=== PATIENT | female | born 1970 | race Caucasian/White ===

== ENCOUNTER → 2017-09-14 | Day surgery (SDC) | payer OTHER ==
[~2017-09-14] VITALS: Ht 152.4 cm; Wt 81.6 kg
[~2017-09-14] MED LIST: FERROUS SULFAT325 M3 PO; LEVOXYL88 MCG PO; NEXIUM 24HR22.3 MG PO; VITAMIN D PO
--- NOTE | 2017-09-14 02:02 | ED GI/GU/ABDOMINAL COMPLAINT ---
History of Present Illness General Chief Complaint: Abdominal Pain/Flank Pain Stated Complaint: ABD PAIN Source: patient Exam Limitations: no limitations Vital Signs & Intake/Output Vital Signs & Intake/Output Vital Signs Date Time Temp Pulse Resp B/P B/P Pulse O2 O2 Flow FiO2 Mean Ox Delivery Rate 09/14 0904 97.6 69 18 115/56 99 Room Air 09/14 0710 97.9 73 18 113/65 97 Room Air 09/14 0529 97.1 61 20 146/80 96 Room Air 09/14 0159 97.7 64 16 152/77 99 Room Air Room Air Allergies Coded Allergies: bacitracin (From NEOSPORIN ([id number])) (Severe, ANAPHYLAXIS 09/14/17) latex (Severe, ANAPHYLAXIS 09/14/17) neomycin (From NEOSPORIN ([id number])) (Severe, ANAPHYLAXIS 09/14/17) polymyxin B (From NEOSPORIN ([id number])) (Severe, ANAPHYLAXIS 09/14/17) strawberry (Severe, ANAPHYLAXIS 09/14/17) Reconcile Medications Esomeprazole Magnesium (Nexium 24HR) 22.3 MG CAPSULE.DR 1 CAP PO DAILY PRN GERD (Reported) Ferrous Sulfate 325 MG (65 MG IRON) TABLET 1 TAB PO BID ANEMIA (Reported) Levothyroxine Sodium (Levoxyl) 88 MCG TABLET 1 TAB PO DAILY HYPOTHYROID ( Reported) [VITAMIN D] 5,000 UNITS 1 TAB PO DAILY PROPHO (Reported) Triage Note: PT TO TRIAGE WITH EPIGASTRIC PAIN AND PIN AND NEEDS TO HER LEFT ABD SINCE 2100. PT STATES PAIN IS 10/10. PT IS NAUSEOUS AND ACTIVELY VIMTING AT TRIAGE. STATES SHE HAS FELT HOT AND COLD BUT IS CURRENTLY AFEBRILE. Triage Nurses Notes Reviewed? yes ? N Is pt currently ? No Onset: Abrupt Duration: hour(s): (SEVERAL) Timing: multiple episodes today Quality/Severity: mild, moderate, stabbing Location: epigastric, right upper quadrant Radiation: back Activities at Onset: eating No Modifying Factors: none Associated Symptoms: abdominal pain, nausea/vomiting HPI: This is a 47 year old female presents to the ER for chief complaint of epigastric/right upper quadrant abdominal pain that started around 9:30 after eating a sausage and egg sandwich for dinner around 6:30. She states the pain radiates to both sides around to the left. Positive chest pain and nausea. She vomited upon arrival. No urinary symptoms. No difficulty with bowel habits. (Gaye Lopez MD) Past History Travel History Traveled to [place] past 21 day No Medical History Any Pertinent Medical History? see below for history Neurological: multiple sclerosis EENT: NONE Cardiovascular: NONE Respiratory: NONE Gastrointestinal: NONE Hepatic: NONE Renal: NONE Musculoskeletal: NONE Psychiatric: NONE Endocrine: hypoglycemia Blood Disorders: NONE Cancer(s): UTERINE CA PUBLIC RELATIONS ANALYST/Reproductive: NONE Surgical History Surgical History: SURGICAL EXCISION OF MOLE 09/13/17 Psychosocial History What is your primary language Cambodian Tobacco Use: Current Daily Use Daily Tobacco Use Amount/Type: => 5 Cigarettes daily ETOH Use: occasional use Illicit Drug Use: denies illicit drug use Family History Hx Contributory? No (Gaye Lopez MD) Review of Systems Review of Systems Constitutional: Denies: chills, fever. EENTM: Reports: no symptoms. Respiratory: Denies: cough, short of breath. Cardiovascular: Reports: chest pain. GI: Reports: abdominal pain, bloody stool, vomiting. Genitourinary: Denies: discharge, dysuria, frequency, hematuria. Musculoskeletal: Reports: back pain. Skin: Reports: no symptoms. Neurological/Psychological: Reports: no symptoms. Hematologic/Endocrine: Denies: bruising, bleeding, polyuria, polydipsia. Immunologic/Allergic: Denies: splenectomy. All Other Systems: Reviewed and Negative (Gaye Lopez MD) Physical Exam Physical Exam General Appearance: well developed/nourished, alert, awake, anxious, moderate distress, severe distress, obese Head: atraumatic, normal appearance Eyes: Bilateral: normal appearance, PERRL, EOMI. Ears, Nose, Throat, Mouth: hearing grossly normal, moist mucous membrane Neck: normal inspection, supple, full range of motion Respiratory: normal breath sounds, chest non-tender, no respiratory distress Cardiovascular: regular rate/rhythm, normal peripheral pulses Gastrointestinal: normal bowel sounds, soft, tenderness (RUQ, EPIGASTRIC), POSITIVE ROJAS'S Back: normal inspection, normal range of motion, DRESSING IN PLACE OVER MOLE REMOVAL Extremities: normal range of motion Neurologic/Psych: no motor/sensory deficits, awake, alert, oriented x 3 Skin: intact, normal color, warm/dry Core Measures ACS in differential dx? Yes Sepsis Present: No Sepsis Focused Exam Completed? No (John GUTIERREZ,Gaye) Progress Differential Diagnosis: AAA, AMI, biliary colic, bowel obstruction, cholecystitis, gastritis, hepatitis, pancreatitis, peptic ulcer, PUD/GERD, perforated viscous, SBO Plan of Care: Orders Procedure Date/time Status Add-on Test (ER Only) 09/14 0418 Active URINALYSIS 09/14 034 Complete Add-on Test (ER Only) 09/14 0302 Active EKG 09/14 025 Active TROPONIN LEVEL 09/14 220 Complete PARTIAL THROMBOPLASTIN TIME 09/14 220 Complete PROTHROMBIN TIME 09/14 220 Complete LIPASE 09/14 211 Complete COMPREHENSIVE METABOLIC PANEL 09/14 211 Complete CBC WITHOUT DIFFERENTIAL 09/14 211 Complete AMYLASE 09/14 211 Complete Laboratory Tests 09/14/17 0550: Urine Color YEL, Urine Clarity CLEAR, Urine pH 5.5, Ur Specific [place] 1.015, Urine Protein NEG, Urine Ketones NEG, Urine Nitrite NEG, Urine Bilirubin NEG, Urine Urobilinogen 0.2, Ur Leukocyte Esterase NEG, Ur Microscopic SEDIMENT EXAMINED, Urine RBC 1-3, Ur Epithelial Cells MOD H, Urine Hemoglobin TRACE- INTACT, Urine Glucose NEG 09/14/17 0220: Anion Gap 13, Estimated GFR > 60, BUN/Creatinine Ratio 25.7 H, Glucose 122 H, Calcium 9.7, Total Bilirubin 0.3, AST 19, ALT 25, Alkaline Phosphatase 84, Troponin I < 0.01, Total Protein 7.3, Albumin 4.3, Globulin 3.0, Albumin/ Globulin Ratio 1.4, Amylase 38, Lipase 71, PT 10.7, INR 1.02, APTT 25, CBC w Diff MAN DIFF ORDERED, RBC 4.78, MCV 78.3 L, MCH 26.0 L, RDW 18.2 H, MPV 9.1, Gran % 55.8, Lymphocytes % 36.5, Monocytes % 5.5, Eosinophils % 1.5, Basophils % 0.7, Absolute Granulocytes 7.0 H, Segmented Neutrophils 47, Band Neutrophils 1, Absolute Lymphocytes 4.6 H, Lymphocytes 42, Monocytes 6, Absolute Monocytes 0.7 H, Eosinophils 3, Absolute Eosinophils 0.2, Basophils 1, Absolute Basophils 0.1 , Platelet Estimate ADEQUATE, Normocytic RBCs VERIFIED, Normochromic RBCs VERIFIED, PUBS MCHC 33.3 CT scan consistent with gallbladder stones. No pericholecystic fluid with persistent right upper quadrant pain on palpation. She will stay for right upper quadrant ultrasound in the a.m. Patient was given pain medications through the IV with improvement. Diagnostic Imaging: Viewed by Me: CT Scan. Discussed w/RAD: CT Scan. Radiology Impression: PATIENT: HECTOR MELVIN PRESENT AGE: 47 PATIENT ACCOUNT NO: [id number] : 68 LOCATION: [facility] ORDERING PHYSICIAN: Gaye Lopez MD SERVICE DATE: 09/14/17 EXAM TYPE: CAT - CT ABD & PELVIS W IV CONTRAST EXAMINATION: CT ABDOMEN AND PELVIS WITH CONTRAST CLINICAL INFORMATION: Epigastric and abdominal pain radiating to the back. COMPARISON: None available. TECHNIQUE: Multidetector volumetric imaging was performed of the abdomen and pelvis following IV administration of 120 mL of Optiray 320 intravenous contrast. Sagittal and coronal reformatted images were obtained on the technologist's workstation. FINDINGS: The lung bases are clear. There is a 1.2 cm low-density lesion with peripheral enhancement within the right lobe of the liver, most compatible with a hemangioma. The spleen, adrenal glands, and pancreas are normal. Cholelithiasis without evidence of acute cholecystitis. The kidneys exhibit symmetric nephrograms without evidence of hydronephrosis or nephrolithiasis. No focal renal lesions. The large and small bowel are normal in caliber without evidence of mechanical obstruction. No focal inflammatory changes adjacent to the large or the small bowel. The appendix is normal. There is no free air and there is no intra-abdominal free fluid. No mesenteric or retroperitoneal adenopathy. The uterus is surgically absent. No pelvic adenopathy. No free fluid within the pelvis. There are no acute osseous abnormalities. No significant soft tissue abnormality. IMPRESSION: Cholelithiasis without CT evidence of acute cholecystitis. There is a 1.2 cm hemangioma within the right lobe of the liver. DICTATED BY: Mohit Jacobs MD DATE/TIME DICTATED:09/14/17356 PROJECT STRUCTURAL ENGINEER:JUDY DATE/TIME TRANSCRIBED:09/14/17356 CONFIDENTIAL, DO NOT COPY WITHOUT APPROPRIATE AUTHORIZATION. <Electronically signed in Other Vendor System> SIGNED BY: Mohit Jacobs MD 09/14/17 0404 Initial ED EKG: NSR Hand-Off Endorsed To: Juan Metzger MD Endorsed Time: 0700 Pending: ultrasound (RUQ) (John GUTIERREZ,Gaye) Radiology Impression: PATIENT: HECTOR MELVIN PRESENT AGE: 47 PATIENT ACCOUNT NO: [id number] : 68 LOCATION: [facility] ORDERING PHYSICIAN: Gaye Lopez MD SERVICE DATE: 09/14/17 EXAM TYPE: US - US- LIMITED ABDOMEN EXAMINATION: US ABDOMEN LIMITED CLINICAL INFORMATION: Clinical question of acute cholecystitis. COMPARISON: CT abdomen and pelvis dated 2016. TECHNIQUE: Real-time imaging of the right upper quadrant abdominal viscera. FINDINGS: PANCREAS: Poorly visualized secondary to overlapping bowel gas. ABDOMINAL AORTA: The proximal segment is normal in caliber. INFERIOR VENA CAVA: Visualized portions are normal. LIVER: Normal. The liver demonstrates normal size, contour and echogenicity. No focal lesion or intrahepatic biliary duct dilatation. GALLBLADDER: There are shadowing gallstones, the largest measuring 1.5 cm, 1.5 cm and 1.5 cm in maximal diameter. The gallbladder is physiologically distended without evidence of sludge, polyps, wall thickening or pericholecystic fluid. COMMON BILE DUCT: Normal in caliber measuring 0.4 cm in diameter. RIGHT KIDNEY: Normal. No hydronephrosis. No renal calculi or focal parenchymal lesions. The kidney measures 9.9 cm in maximum dimension. FREE FLUID : None. IMPRESSION: 1. There is cholelithiasis, without cholecystitis or choledocholithiasis seen. 2. Limited ultrasound examination of the pancreas. DICTATED BY: Ashok Burt MD DATE/TIME DICTATED:09/14/17830 PROJECT STRUCTURAL ENGINEER:JUDY DATE/TIME TRANSCRIBED:09/14/17830 CONFIDENTIAL, DO NOT COPY WITHOUT APPROPRIATE AUTHORIZATION. <Electronically signed in Other Vendor System> SIGNED BY: Ashok Burt MD 09/14/17845 Comments: Patient is requiring multiple doses of pain medication for her right upper quadrant pain. Case was discussed with Dr. Garcia. Surgery will consult on the patient. (Juan Metzger MD) Departure Departure Disposition: STILL A PATIENT Condition: Stable Clinical Impression Primary Impression: Cholelithiasis Referrals: Geraldine Hansen MD (PCP/Family) Departure Forms: Customer Survey General Discharge Information (John GUTIERREZ,Gaye) OR/GI Note Spoke With: Jose GUTIERREZ,Payam Gonzalze ED Treatment Decision: HECTOR MELVIN requires urgent operative management or an emergent procedure that cannot be performed in the Emergency Room setting. Transport To: [facility] (Yassine GUTIERREZ,Juan Melo)
[2017-09-14 02:33] LABS: ABSOLUTE BASOPHIL COUNT 0.1 /CUMM (0.0-0.2); ABSOLUTE EOSINOPHIL COUNT 0.2 /CUMM (0.0-0.7); ABSOLUTE LYMPH COUNT 4.6 /CUMM (1.2-3.4); ABSOLUTE MONOCYTE COUNT 0.7 /CUMM (0.10-0.60); BASOPHIL % 0.7 % (0.0-2.0); EOSINOPHIL % 1.5 % (0-5); GRANULOCYTE % 55.8 % (42.2-75.2); HEMATOCRIT 37.5 % (37-47); MEAN CORPUSCULAR HGB CONC 33.3 G/DL (33.0-37.0); MEAN CORPUSCULAR VOLUME 78.3 FL (81.0-99.0); MEAN PLATELET VOLUME 9.1 FL (7.4-10.4); PLATELET COUNT 326 /CUMM (130-400); RBC DISTRIBUTION WIDTH 18.2 % (11.5-14.5); RED BLOOD CELL CT 4.78 /CUMM (4.20-5.40); WHITE BLOOD CELL COUNT 12.5 /CUMM (4.8-10.8)
--- NOTE | 2017-09-14 04:04 | CT SCAN REPORT ---
EXAMINATION: CT ABDOMEN AND PELVIS WITH CONTRAST CLINICAL INFORMATION: Epigastric and abdominal pain radiating to the back. COMPARISON: None available. TECHNIQUE: Multidetector volumetric imaging was performed of the abdomen and pelvis following IV administration of 120 mL of Optiray 320 intravenous contrast. Sagittal and coronal reformatted images were obtained on the technologist's workstation. FINDINGS: The lung bases are clear. There is a 1.2 cm low-density lesion with peripheral enhancement within the right lobe of the liver, most compatible with a hemangioma. The spleen, adrenal glands, and pancreas are normal. Cholelithiasis without evidence of acute cholecystitis. The kidneys exhibit symmetric nephrograms without evidence of hydronephrosis or nephrolithiasis. No focal renal lesions. The large and small bowel are normal in caliber without evidence of mechanical obstruction. No focal inflammatory changes adjacent to the large or the small bowel. The appendix is normal. There is no free air and there is no intra-abdominal free fluid. No mesenteric or retroperitoneal adenopathy. The uterus is surgically absent. No pelvic adenopathy. No free fluid within the pelvis. There are no acute osseous abnormalities. No significant soft tissue abnormality. IMPRESSION: Cholelithiasis without CT evidence of acute cholecystitis. There is a 1.2 cm hemangioma within the right lobe of the liver.
[2017-09-14 04:36] LABS: PT 10.7 SEC (9.4-12.5); PTT 25 SEC (25-37)
--- NOTE | 2017-09-14 08:46 | ULTRASOUND REPORT ---
EXAMINATION: US ABDOMEN LIMITED CLINICAL INFORMATION: Clinical question of acute cholecystitis. COMPARISON: CT abdomen and pelvis dated 09/14/2017. TECHNIQUE: Real-time imaging of the right upper quadrant abdominal viscera. FINDINGS: PANCREAS: Poorly visualized secondary to overlapping bowel gas. ABDOMINAL AORTA: The proximal segment is normal in caliber. INFERIOR VENA CAVA: Visualized portions are normal. LIVER: Normal. The liver demonstrates normal size, contour and echogenicity. No focal lesion or intrahepatic biliary duct dilatation. GALLBLADDER: There are shadowing gallstones, the largest measuring 1.5 cm, 1.5 cm and 1.5 cm in maximal diameter. The gallbladder is physiologically distended without evidence of sludge, polyps, wall thickening or pericholecystic fluid. COMMON BILE DUCT: Normal in caliber measuring 0.4 cm in diameter. RIGHT KIDNEY: Normal. No hydronephrosis. No renal calculi or focal parenchymal lesions. The kidney measures 9.9 cm in maximum dimension. FREE FLUID: None. IMPRESSION: 1. There is cholelithiasis, without cholecystitis or choledocholithiasis seen. 2. Limited ultrasound examination of the pancreas.
--- NOTE | 2017-09-14 10:06 | History & Physical Pre-Op ---
Nain Morrissey 09/14/17 0958: General Information and HPI MD Statement: I have seen and personally examined HECTOR MELVIN and documented this H&P. The patient is a 47 year old F who presented with a patient stated chief complaint of [abdominal pain, vomiting]. Source of Information: patient Exam Limitations: no limitations History of Present Illness: 47-year-old female with sudden onset of abdominal pain and vomiting, abdominal pain in the epigastric region that radiated to the right mid back area after eating a sausage egg and cheese sandwich. She has been having similar episodes of this that has been escalating over the past several months since her hysterectomy. She has noted some"indigestion/heartburn"symptoms that have also been escalating over the past few years. Pain last night was severe, it brought her to the emergency room where she received several doses of pain medication and antiemetics and IV fluids, still requiring IV pain medication this morning. Surgery was consulted for evaluation of gallbladder disease as her ultrasound showed gallstones Allergies/Medications Allergies: Coded Allergies: bacitracin (From NEOSPORIN ([id number])) (Severe, ANAPHYLAXIS 09/14/17) latex (Severe, ANAPHYLAXIS 09/14/17) neomycin (From NEOSPORIN ([id number])) (Severe, ANAPHYLAXIS 09/14/17) polymyxin B (From NEOSPORIN ([id number])) (Severe, ANAPHYLAXIS 09/14/17) strawberry (Severe, ANAPHYLAXIS 09/14/17) Home Med list Esomeprazole Magnesium (Nexium 24HR) 22.3 MG CAPSULE.DR 1 CAP PO DAILY PRN GERD (Reported) Ferrous Sulfate 325 MG (65 MG IRON) TABLET 1 TAB PO BID ANEMIA (Reported) Levothyroxine Sodium (Levoxyl) 88 MCG TABLET 1 TAB PO DAILY HYPOTHYROID ( Reported) [VITAMIN D] 5,000 UNITS 1 TAB PO DAILY PROPHO (Reported) Past History Medical History Neurological: multiple sclerosis EENT: NONE Cardiovascular: NONE Respiratory: NONE Gastrointestinal: NONE Hepatic: NONE Renal: NONE Musculoskeletal: NONE Psychiatric: NONE Endocrine: hypoglycemia Blood Disorders: NONE Cancer(s): UTERINE CA WEB PRESSMAN/Reproductive: NONE Surgical History Pertinent Surgical History: hysterectomy (laparoscopic), SURGICAL EXCISION OF MOLE 09/13/17 Past Family/Social History Psychosocial History ETOH Use: occasional use Illicit Drug Use: denies illicit drug use Functional Ability ADLs Independent: dressing, eating, toileting, bathing. Review of Systems Review of Systems: Review of systems: See HPI, all other systems negative. Constitutional: No chills fever or weight loss HEENT: No visual changes no sore throat no congestion Cardiovascular: No chest pain ,palpitation , orthopnea or ankle swelling Skin: No jaundice no rashes Respiratory: No dyspnea cough sputum or hemoptysis GI: See HPI : No dysuria no hematuria Musclulo skeletal: No back pain no neck pain, Neurologic: No numbness no confusion Psych: No stress anxiety or depression,. Heme/endocrine: No bruising no bleeding no polyuria or polydipsia Immunology: No splenectomy or history of AIDS Exam & Diagnostic Data Last 24 Hrs of Vital Signs/I&O Vital Signs Date Time Temp Pulse Resp B/P B/P Pulse O2 O2 Flow FiO2 Mean Ox Delivery Rate 09/14 0904 97.6 69 18 115/56 99 Room Air 09/14 0710 97.9 73 18 113/65 97 Room Air 09/14 0529 97.1 61 20 146/80 96 Room Air 09/14 0159 97.7 64 16 152/77 99 Room Air Room Air Intake & Output 09/14 1600 09/14 0800 09/14 0000 Intake Total 1000 0 Output Total Balance 1000 0 Intake, IV 1000 Intake, Oral 0 Patient 180 lb Weight Physical Exam: Well-developed well-nourished appears mildly uncomfortable. HEENT: Atraumatic, extraocular motion intact Neck: Supple, no lymphadenopathy Respiratory: No respiratory distress clear to auscultation bilateral. Heart: Regular rate and rhythm no murmur Abdomen: Mild guarding, tenderness in the right upper quadrant and epigastric region, positive Ramos sign, no lower abdominal tenderness, soft, nondistended Extremities: No edema, no calf pain Neuro: Alert and oriented x3 Psych: Mood affect normal, normal memory normal judgment. Skin: Warm and dry, no rash on exposed skin Last 24 Hrs of Labs/Robert: Laboratory Tests 09/14/17 0550: Urine Color YEL, Urine Clarity CLEAR, Urine pH 5.5, Ur Specific Barn[place] 1.015, Urine Protein NEG, Urine Ketones NEG, Urine Nitrite NEG, Urine Bilirubin NEG, Urine Urobilinogen 0.2, Ur Leukocyte Esterase NEG, Ur Microscopic SEDIMENT EXAMINED, Urine RBC 1-3, Ur Epithelial Cells MOD H, Urine Hemoglobin TRACE- INTACT, Urine Glucose NEG 09/14/17 0220: Anion Gap 13, Estimated GFR > 60, BUN/Creatinine Ratio 25.7 H, Glucose 122 H, Calcium 9.7, Total Bilirubin 0.3, AST 19, ALT 25, Alkaline Phosphatase 84, Troponin I < 0.01, Total Protein 7.3, Albumin 4.3, Globulin 3.0, Albumin/ Globulin Ratio 1.4, Amylase 38, Lipase 71, PT 10.7, INR 1.02, APTT 25, CBC w Diff MAN DIFF ORDERED, RBC 4.78, MCV 78.3 L, MCH 26.0 L, RDW 18.2 H, MPV 9.1, Gran % 55.8, Lymphocytes % 36.5, Monocytes % 5.5, Eosinophils % 1.5, Basophils % 0.7, Absolute Granulocytes 7.0 H, Segmented Neutrophils 47, Band Neutrophils 1, Absolute Lymphocytes 4.6 H, Lymphocytes 42, Monocytes 6, Absolute Monocytes 0.7 H, Eosinophils 3, Absolute Eosinophils 0.2, Basophils 1, Absolute Basophils 0.1 , Platelet Estimate ADEQUATE, Normocytic RBCs VERIFIED, Normochromic RBCs VERIFIED, PUBS MCHC 33.3 Diagnostic Data Other Results PATIENT: HECTOR MELVIN PRESENT AGE: 47 PATIENT ACCOUNT NO: [id number] : 68 LOCATION: [facility] ORDERING PHYSICIAN: Gaye Lopez MD SERVICE DATE: 09/14/17 EXAM TYPE: US - US-LIMITED ABDOMEN EXAMINATION: US ABDOMEN LIMITED CLINICAL INFORMATION: Clinical question of acute cholecystitis. COMPARISON: CT abdomen and pelvis dated 09/14/2017. TECHNIQUE: Real-time imaging of the right upper quadrant abdominal viscera. FINDINGS: PANCREAS: Poorly visualized secondary to overlapping bowel gas. ABDOMINAL AORTA: The proximal segment is normal in caliber. INFERIOR VENA CAVA: Visualized portions are normal. LIVER: Normal. The liver demonstrates normal size, contour and echogenicity. No focal lesion or intrahepatic biliary duct dilatation. GALLBLADDER: There are shadowing gallstones, the largest measuring 1.5 cm, 1.5 cm and 1.5 cm in maximal diameter. The gallbladder is physiologically distended without evidence of sludge, polyps, wall thickening or pericholecystic fluid. COMMON BILE DUCT: Normal in caliber measuring 0.4 cm in diameter. RIGHT KIDNEY: Normal. No hydronephrosis. No renal calculi or focal parenchymal lesions. The kidney measures 9.9 cm in maximum dimension. FREE FLUID: None. IMPRESSION: 1. There is cholelithiasis, without cholecystitis or choledocholithiasis seen. 2. Limited ultrasound examination of the pancreas. DICTATED BY: Ashok Burt MD DATE/TIME DICTATED:09/14/17830 PROJECT MANAGEMENT ENGINEER:JUDY DATE/TIME TRANSCRIBED:09/14/17830 CONFIDENTIAL, DO NOT COPY WITHOUT APPROPRIATE AUTHORIZATION. <Electronically signed in Other Vendor System> SIGNED BY: Ashok Burt MD 09/14/17845 PATIENT: HECTOR MELVIN PRESENT AGE: 47 PATIENT ACCOUNT NO: [id number] : 68 LOCATION: [facility] ORDERING PHYSICIAN: Gaye Lopez MD SERVICE DATE: 09/14/17 EXAM TYPE: CAT - CT ABD & PELVIS W IV CONTRAST EXAMINATION: CT ABDOMEN AND PELVIS WITH CONTRAST CLINICAL INFORMATION: Epigastric and abdominal pain radiating to the back. COMPARISON: None available. TECHNIQUE: Multidetector volumetric imaging was performed of the abdomen and pelvis following IV administration of 120 mL of Optiray 320 intravenous contrast. Sagittal and coronal reformatted images were obtained on the technologist's workstation. FINDINGS: The lung bases are clear. There is a 1.2 cm low-density lesion with peripheral enhancement within the right lobe of the liver, most compatible with a hemangioma. The spleen, adrenal glands, and pancreas are normal. Cholelithiasis without evidence of acute cholecystitis. The kidneys exhibit symmetric nephrograms without evidence of hydronephrosis or nephrolithiasis. No focal renal lesions. The large and small bowel are normal in caliber without evidence of mechanical obstruction. No focal inflammatory changes adjacent to the large or the small bowel. The appendix is normal. There is no free air and there is no intra-abdominal free fluid. No mesenteric or retroperitoneal adenopathy. The uterus is surgically absent. No pelvic adenopathy. No free fluid within the pelvis. There are no acute osseous abnormalities. No significant soft tissue abnormality. IMPRESSION: Cholelithiasis without CT evidence of acute cholecystitis. There is a 1.2 cm hemangioma within the right lobe of the liver. DICTATED BY: Mohit Jacobs MD DATE/TIME DICTATED:09/14/17 / 0357 PROJECT MANAGEMENT ENGINEER:JUDY Assessment/Plan Assessment/Plan: 47-year-old female with symptomatic cholelithiasis with continued abdominal pain and nausea despite IV narcotics and IV antiemetics over 8 hours in the emergency department. Patient will undergo a laparoscopic cholecystectomy today with Dr. Garcia. Nothing by mouth, IV fluids, pain medication as needed, hopefully she'll be discharged from the hospital after surgery. All questions answered As Ranked By This Provider Problem List: 1. Cholelithiasis 2. Abdominal pain Payam Garcia MD 09/14/17 1327: Attending MD Review Statement Attending Statement Attending MD Statement: examined this patient, discuss w/resident/PA/CHECKROOM ATTENDANT, discussed with family, reviewed images Attending Assessment/Plan: Is a 47-year-old relatively healthy woman presents with classic symptoms of acute cholecystitis. Ultrasound shows gallstones without gallbladder wall thickening or pericholecystic fluid. However given the exquisite tenderness in right upper quadrant and clinical Ramos sign, patient be taken to the operating room for prompt laparoscopic cholecystectomy. She is informed the risks of the operation going bleeding infection, organ injury, post cholecystomy diarrhea and conversion to open. She agrees to proceed.
[2017-09-14 12:01] VITALS: BP 105/65
--- NOTE | 2017-09-14 13:32 | Operative Report ---
Operative/Inv Procedure Report Surgery Date: 09/14/17 Name of Procedure: Laparoscopic cholecystectomy Pre-Operative Diagnosis: Acute cholecystitis Post-Operative Diagnosis: Same Estimated Blood Loss: less than 50ml Surgeon/Online Marketing Specialist: Payam Garcia M.D./Nain FAUSTIN Anesthesia: general endotracheal tube Drains: None Specimens: Gallbladder Operative Indication: Patient presents with clinical acute cholecystitis. Operative/Procedure Note Note: After informed consent patient is brought to the operating room and laid supine. General anesthesia was obtained and her abdomen was prepped and draped. The skin above the umbilicus infiltrated with local anesthesia and a curvilinear incision made sharply. We came down through the subcutaneous tissues bluntly and grasped the fascia with Rut's. A fasciotomy was created sharply and stay sutures placed. The peritoneum was entered sharply and a blunt Dodge port was placed. Pneumoperitoneum was achieved. 3, 5 mm ports were placed in the epigastrium and right upper quadrant after local anesthesia was instilled and under direct vision the camera. She's placed in reverse Trendelenburg and rotated towards the left. The gallbladder is identified. The gallbladder was tensely distended and there was moderate amount of pericholecystic edema. It was grasped at the dome and retracted towards the head. Infundibulum was then grasped. Adhesions to the undersurface were taken down with blunt and cautery dissection. We dissected both sides the triangle Calot peritoneal tissue with cautery. The artery was medial and its normal anatomic position. It was cauterized medially to allow it to be mobilized away from the duct. Sargeant was cleared of areolar tissue with cautery. The arteries and duct were doubly ligated with clips. Gallbladder is removed from the fossa electrocautery. There was a posterior branch of the artery, right lateral side, which was clipped ligated without incident. The gallbladder was placed in Endo Catch bag and cinched up. Right upper quadrant was and suction irrigated normal saline. Hemostasis achieved with cautery. The ports were then removed and the gallbladder delivered and passed off the field. The fascia was closed with 0 Vicryl suture. Skin incisions closed with 4-0 Vicryl. Steri-Strips and sterile dressing applied. Sponge and needle counts are correct. Findings: Acute cholecystitis CC: Tyrone GUTIERREZ,Geraldine
== END ==
LOC: ERH 01:49 → STS 12:02 → ERH 12:03
PROVIDERS: Emergency Medicine
DX: K80.12 Calculus of gallbladder with acute and chronic cholecystitis without obstruction (principal); G35 Multiple sclerosis; F17.210 Nicotine dependence, cigarettes, uncomplicated; F10.10 Alcohol abuse, uncomplicated
CPT/HCPCS: 74177; 81001; 93005; 93010; 96361; 96374; 96375; 96376; J0131; J1100; J1170; J1200; J1885; J2175; J2250; J2405; J3010